=== PATIENT | female | born 1985 | race Caucasian/White ===

== ENCOUNTER 2019-08-25 05:20 | Inpatient (IN) ==
[2019-08-25] MEDS ORDERED: LACTATED RINGERS 250 ML IV ONE (05:28)
[2019-08-25] MEDS ORDERED: BUTORPHANOL 2 MG/ML VIAL IV PRN (05:28)
[2019-08-25] MEDS ORDERED: MEPERIDINE 50 MG/1 ML VIAL IM PRN (05:28)
[2019-08-25] MEDS ORDERED: OXYTOCIN/LR 20 UNIT/1,000 ML BAG IV SCH (05:30)
[2019-08-25] MEDS: LACTATED RINGERS 1,000 ML IV SCH ×2 (06:01→13:26)
[2019-08-25 06:12] LABS: Basophils % 0.3 % (0.0-0.8); Eosinophils # 0.3 10*3/uL (0.0-0.87); Eosinophils % 2.2 % (0.00-10.9); Hematocrit 35.2 VOL% (35.7-47.0); Hemoglobin 11.8 GM/DL (12.0-16.0); Immature Granulocytes Absolute 0.12 #; Lymphocytes # 3.1 10*3/uL (1.4-4.0); Lymphocytes % 26.1 % (21.3-54.2); Mean Corpuscular HGB Conc 33.5 GM/DL (32-36); Mean Corpuscular Volume 88.2 FL (87-102); Mean Platelet Volume 9.9 FL (9.6-12.0); Neutrophils % 62.4 % (38.7-73.9); Platelet Count 213 T/CUMM (130-400); Red Blood Count 3.99 MC/CUMM (3.8-5.5); Red Cell Distribution Width 13.7 % (9.3-17.3); White Blood Count 11.8 T/CUMM (4-12)
[2019-08-25] MEDS ORDERED: NALOXONE 0.4 MG/ML VIAL IV PRN (07:55)
[2019-08-25] MEDS ORDERED: CITRIC ACID/SODIUM CITRATE 30 ML UDCUP PO ONE (07:55)
[2019-08-25] MEDS ORDERED: LACTATED RINGERS 1,000 ML IV ONE (07:55)
[2019-08-25] MEDS ORDERED: ePHEDrine 50 MG/ML AMP IV PRN (07:55)
[2019-08-25] MEDS ORDERED: FAMOTIDINE 20 MG/2 ML VIAL IV ONE (07:55)
[2019-08-25] MEDS ORDERED: diphenhydrAMINE 50 MG/1 ML VIAL IV PRN ×2 (07:55)
[2019-08-25] MEDS ORDERED: fentaNYL 2 MCG/ROPIV 0.2% EPID 100 ML EPIDURAL SCH (08:00)
[2019-08-25] MEDS: ONDANSETRON 4 MG/2 ML VIAL IV PRN ×2 (10:39→16:56)
[2019-08-25 12:09] LABS: Apearance,Urine CLEAR (Clear); Bilirubin,Urine Negative (Negative); Blood, Urine Negative (Negative); Glucose,Urine (UA) Negative (Negative); Ketones,Urine 20 mg/dL (Negative); Mucus,Urine Occasional /LPF (Occasional); Nitrite,Urine Negative (Negative); Protein,Urine Negative; RBC,Urine <1 /HPF (0-4); Squamous Epithelial Cell,Urine Occasional /HPF (0-10); Urine Color Yellow (Yellow); Urine Specific Gravity 1.009 (1.001-1.035); Urine Urobilinogen < 2.0 EU/DL (0.2-1.0); WBC,Urine <1 /HPF (0-6)
[2019-08-25] MEDS ORDERED: miSOPROStoL 200 MCG TABLET ONE (15:38)
[2019-08-25] MEDS ORDERED: METHYLERGONOVINE 0.2 MG/1 ML AMP ONE (15:39)
[2019-08-25] MEDS ORDERED: LIDOCAINE 1% 50 ML VIAL ONE (15:39)
[2019-08-25] MEDS ORDERED: miSOPROStoL 200 MCG TABLET VAG ONE (16:20)
[2019-08-25] MEDS ORDERED: METHYLERGONOVINE 0.2 MG/1 ML AMP IM ONE (16:20)
[2019-08-25] MEDS ORDERED: CARBOPROST TROMETHAMINE 250 MCG/ML AMP IM ONE ×2 (16:22→16:23)
[2019-08-25] MEDS ORDERED: MEASLES/MUMPS/RUBELLA VACCINE 0.5 ML VIAL SUBCUT ONE (16:47)
[2019-08-25] MEDS ORDERED: RHO(D) IMMUNE GLOBULIN 300 MCG SYRINGE IM ONE (16:47)
[2019-08-25] MEDS ORDERED: ONDANSETRON 4 MG/2 ML VIAL IV PRN (16:47)
[2019-08-25] MEDS ORDERED: BISACODYL 10 MG SUPP RECTAL PRN (16:47)
[2019-08-25] MEDS ORDERED: HYDROCORTISONE 2.5% RECTAL CREAM 30 GM TUBE TOP PRN (16:47)
[2019-08-25] MEDS ORDERED: oxyCODONE/ACETAMINOPHEN 5-325 MG TABLET PO PRN (16:47)
[2019-08-25] MEDS ORDERED: BENZOCAINE 20%/MENTHOL 0.5% SPRAY 56 GM CAN TOP PRN (16:47)
[2019-08-25] MEDS ORDERED: DIPH/TET/ACEL PERT BOOSTER VACCINE 0.5 ML VIAL IM ONE (16:47)
[2019-08-25] MEDS ORDERED: LANOLIN 50% CREAM 0.3 OZ TUBE TOP PRN (16:47)
[2019-08-25] MEDS ORDERED: OXYTOCIN/LR 20 UNIT/1,000 ML BAG IV ONE (16:47)
[2019-08-25] MEDS ORDERED: ACETAMINOPHEN 325 MG TABLET PO PRN (16:47)
[2019-08-25] MEDS ORDERED: WITCH HAZEL PADS 100/JAR TOP PRN (16:47)
[2019-08-25] MEDS ORDERED: IBUPROFEN 800 MG TABLET PO PRN (16:47)
[2019-08-25] MEDS ORDERED: PROMETHAZINE 25 MG/1 ML VIAL IM ONE (18:08)
[2019-08-25] MEDS ORDERED: PROMETHAZINE 25 MG/1 ML VIAL ONE (18:10)
[2019-08-25] MEDS: DOCUSATE SODIUM 100 MG CAPSULE PO SCH (21:11)
[2019-08-26] MEDS: oxyCODONE/ACETAMINOPHEN 5-325 MG TABLET PO PRN ×4 (01:53→20:20)
[2019-08-26 05:43] LABS: Basophils # 0.1 10*3/uL (0.0-0.2); Basophils % 0.3 % (0.0-0.8); Eosinophils # 0.1 10*3/uL (0.0-0.87); Eosinophils % 0.6 % (0.00-10.9); Hemoglobin 9.2 GM/DL (12.0-16.0); Immature Granulocytes Absolute 0.16 #; Lymphocytes # 4.2 10*3/uL (1.4-4.0); Lymphocytes % 25.8 % (21.3-54.2); Mean Corpuscular HGB Conc 32.9 GM/DL (32-36); Mean Corpuscular Volume 89.5 FL (87-102); Mean Platelet Volume 10.3 FL (9.6-12.0); Monocytes % 8.3 % (1.7-12.7); Platelet Count 198 T/CUMM (130-400); Red Blood Count 3.13 MC/CUMM (3.8-5.5); Red Cell Distribution Width 13.8 % (9.3-17.3); White Blood Count 16.3 T/CUMM (4-12)
[2019-08-26] MEDS: DOCUSATE SODIUM 100 MG CAPSULE PO SCH ×2 (08:48→20:20)
[2019-08-26] MEDS: FERROUS SULFATE 325 MG TABLET PO SCH ×2 (08:48→20:20)
[2019-08-26] MEDS ORDERED: RHO(D) IMMUNE GLOBULIN 300 MCG SYRINGE IM ONE (11:42)
[2019-08-27] MEDS: oxyCODONE/ACETAMINOPHEN 5-325 MG TABLET PO PRN ×2 (03:22→10:01)
[2019-08-27 07:51] VITALS: BP 117/71
[2019-08-27] MEDS: DOCUSATE SODIUM 100 MG CAPSULE PO SCH (09:10)
[2019-08-27] MEDS: FERROUS SULFATE 325 MG TABLET PO SCH (09:11)
== END 2019-08-27 11:20 | disposition home or self-care (01) | DRG 807 ==
LOC: N.LDOUT 05:20 → N.LD 05:21 → N.OB 18:00
PROVIDERS: ADMIT Specialist; ATTEND Specialist